=== PATIENT | female | born 1985 | race Caucasian/White ===

== ENCOUNTER 2016-07-31 23:50 | Emergency (ER) | payer OTHER | END 2016-08-01 02:15 | disposition home or self-care (01) | LOC: ER 23:50 | DX: J20.9 Acute bronchitis, unspecified (principal); R11.2 Nausea with vomiting, unspecified; R19.7 Diarrhea, unspecified; Z88.6 Allergy status to analgesic agent; F17.200 Nicotine dependence, unspecified, uncomplicated; Z98.51 Tubal ligation status | CPT/HCPCS: 36415; 87502; 87651; 96361; 96374 ==